=== PATIENT | male | born 1980 | race Caucasian/White ===

== ENCOUNTER 2017-01-13 08:41 | Day surgery (SDC) | payer BC ==
[2017-01-13] MEDS ORDERED: Propofol 10 mg/ml Inj (20 ML) ONE (12:14)
[2017-01-13 12:41] VITALS: TEMP 97.8
[2017-01-13 13:04] VITALS: PULSE 57; O2SAT 99
[2017-01-13 13:36] VITALS: BP 106/68; RESP 19
== END 2017-01-13 13:34 | disposition home or self-care (01) ==
LOC: C.ENDO 08:41
PROVIDERS: ATTEND Internal Medicine Gastroenterology
DX: K29.50 Unspecified chronic gastritis without bleeding (principal); B96.81 Helicobacter pylori [H. pylori] as the cause of diseases classified elsewhere
CPT/HCPCS: 43239; 88305; 88312; 88313; 88342; J2001; J2704